=== PATIENT | female | born 1955 | race African-American/Black ===

== ENCOUNTER 2018-11-12 10:22 | Inpatient (IN) | payer BC, OTHER ==
[2018-11-12 10:56] VITALS: BMI 39.4
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
[2018-11-12] MEDS ORDERED: MAGNESIUM HYDROX 2400MG/30ML ORAL SUSPENSION 30 ML CUP PO PRN (12:15)
[2018-11-12] MEDS ORDERED: MAGNESIUM CITRATE 300 ML BOTTLE PO PRN (12:15)
[2018-11-12] MEDS ORDERED: DICYCLOMINE HCL 10 MG CAPSULE PO PRN (12:15)
[2018-11-12] MEDS ORDERED: BISMUTH SUBSALICYLATE 262 MG/15 ML BTL PO PRN (12:15)
[2018-11-12] MEDS ORDERED: METHOCARBAMOL 500 MG TABLET PO PRN (12:15)
[2018-11-12] MEDS ORDERED: MENTHOL/PHENOL 1 EACH UD MM PRN (12:15)
[2018-11-12] MEDS ORDERED: ACETAMINOPHEN 325 MG TABLET (FP) PO PRN ×2 (12:15)
[2018-11-12] MEDS ORDERED: chlordiazePOXIDE HCL 25 MG CAPSULE PO PRN (12:15)
[2018-11-12] MEDS ORDERED: MAG HYDROX/AL HYDROX/SIMETH 30 ML UNIT-DOSE CUP PO PRN (12:15)
[2018-11-12] MEDS: chlordiazePOXIDE HCL 25 MG CAPSULE PO SCH ×2 (16:57→22:08)
[2018-11-12] MEDS: ALBUTEROL SO4 0.083% IH SOL 2.5 MG/3 ML VIAL.NEB. NEB PRN (17:00)
[2018-11-12 17:06] LABS: HEMATOCRIT 43.6 % (32.4-45.2); HEMOGLOBIN 14.1 GM/dL (10.7-15.3); MCHC 32.3 g/dl (32.0-36.0); MEAN CELL VOLUME 86.8 fl (80-96); MEAN PLT VOLUME 9.3 fl (7.5-11.1); PLATELET COUNT 283 K/MM3 (134-434); RBC 5.02 M/mm3 (3.60-5.2); RDW 15.4 % (11.6-15.6); WHITE BLOOD COUNT 4.4 K/mm3 (4.0-10.0)
[2018-11-12 17:14] LABS: ALBUMIN 4.1 g/dl (3.4-5.0); BILIRUBIN,TOTAL 0.3 mg/dL (0.2-1); CALCIUM 9.6 mg/dL (8.5-10.1); POTASSIUM 4.2 mmol/L (3.5-5.1); TOT PROT 7.4 g/dl (6.4-8.2)
[2018-11-12] MEDS: THIAMINE HCL 100 MG TABLET (FP) PO SCH (22:07)
[2018-11-12] MEDS: BUDESONIDE/FORMETEROL FUMARATE 160/4.5 mcg INHALER IH SCH (22:08)
[2018-11-12] MEDS: MELATONIN 5 MG TABLETS PO PRN (22:09)
[2018-11-13] MEDS: chlordiazePOXIDE HCL 25 MG CAPSULE PO SCH ×4 (05:23→22:17)
[2018-11-13] MEDS: ALBUTEROL SO4 0.083% IH SOL 2.5 MG/3 ML VIAL.NEB. NEB PRN ×2 (06:41→15:45)
[2018-11-13] MEDS: PANTOPRAZOLE 40 MG TABLET (FP) PO SCH (10:16)
[2018-11-13] MEDS: PRENATAL VITAMINS W/ FOLIC ACID TABLET (FP) PO SCH (10:16)
[2018-11-13] MEDS: BUDESONIDE/FORMETEROL FUMARATE 160/4.5 mcg INHALER IH SCH ×2 (10:16→21:44)
[2018-11-13] MEDS: LOSARTAN POTASSIUM 50 MG TABLET (FP) PO SCH (10:16)
[2018-11-13] MEDS: HYDROCORTISONE 1% TOPICAL CREAM 30 GM TUBE TP SCH ×2 (15:47→21:43)
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
[2018-11-13] MEDS ORDERED: ONDANSETRON *ODT* 4 MG TABLET SL PRN (17:57)
--- NOTE | 2018-11-13 18:01 | PN ---
S CIWA - CIWA Score Nausea/Vomitin Muscle Tremors: 3 Anxiety: 1-Mildly Anxious Agitation: 1-Slight > Activity Paroxysmal Sweats: No Perspiration Orientation: 0-Oriented Tacttile Disturbances: 3-Moderate Itch/Numb/Burn Auditory Disturbances: 2-Mild Harshness/Frighten Visual Disturbances: 1-Very Mild Sensitivity Headache: 0-None Present CIWA-Ar Total Score: 14 BHS Progress Note (SOAP) Subjective: Poor Appetite, Tremors, Nausea, Anxious. Objective: PATIENT A & O X 3, OBSERVED AMBULATING ON UNIT UNASSISTED. IN NO ACUTE DISTRESS. 11/13/18 18:00 Vital Signs Temperature 97.8 F 11/13/18 16:04 Pulse Rate 81 11/13/18 16:04 Respiratory Rate 18 11/13/18 16:04 Blood Pressure 131/79 11/13/18 16:04 O2 Sat by Pulse Oximetry (%) Laboratory Tests 11/12/18 11/12/18 11/12/18 11:12 12:30 12:30 WBC 4.4 RBC 5.02 Hgb 14.1 Hct 43.6 MCV 86.8 MCH 28.0 MCHC 32.3 RDW 15.4 Plt Count 283 MPV 9.3 Sodium 139 Potassium 4.2 Chloride 106 Carbon Dioxide 27 Anion Gap 6 L BUN 14 Creatinine 1.0 Est GFR (CKD-EPI)AfAm 68.95 Est GFR (CKD-EPI)NonAf 59.49 Random Glucose 99 Calcium 9.6 Total Bilirubin 0.3 AST 17 ALT 23 Alkaline Phosphatase 75 Total Protein 7.4 Albumin 4.1 POC Urine HCG, Qual Negative RPR Titer HIV 1&2 Antibody Screen HIV P24 Antigen 11/12/18 11/13/18 12:30 09:20 WBC RBC Hgb Hct MCV MCH MCHC RDW Plt Count MPV Sodium Potassium Chloride Carbon Dioxide Anion Gap BUN Creatinine Est GFR (CKD-EPI)AfAm Est GFR (CKD-EPI)NonAf Random Glucose Calcium Total Bilirubin AST ALT Alkaline Phosphatase Total Protein Albumin POC Urine HCG, Qual RPR Titer Nonreactive HIV 1&2 Antibody Screen Negative HIV P24 Antigen Negative LABS NOTED. Assessment: 11/13/18 18:01 WITHDRAWAL SYMPTOMS. Plan: CONTINUE DETOX. PRN ZOFRAN SL FOR NAUSEA.
[2018-11-13] MEDS: IBUPROFEN 400 MG TABLET (FP) PO PRN (18:20)
[2018-11-13] MEDS: THIAMINE HCL 100 MG TABLET (FP) PO SCH (21:43)
[2018-11-13] MEDS: MELATONIN 5 MG TABLETS PO PRN (21:45)
[2018-11-14] MEDS: chlordiazePOXIDE HCL 25 MG CAPSULE PO SCH ×2 (05:57→10:09)
[2018-11-14] MEDS: IBUPROFEN 400 MG TABLET (FP) PO PRN (05:59)
[2018-11-14] MEDS ORDERED: HALOPERIDOL 2 MG TABLET PO ONE (10:02)
[2018-11-14] MEDS ORDERED: BENZTROPINE MESYLATE 0.5 MG TABLET (FP) PO ONE (10:03)
[2018-11-14] MEDS: PRENATAL VITAMINS W/ FOLIC ACID TABLET (FP) PO SCH (10:08)
[2018-11-14] MEDS: BUDESONIDE/FORMETEROL FUMARATE 160/4.5 mcg INHALER IH SCH ×2 (10:09→22:41)
[2018-11-14] MEDS: LOSARTAN POTASSIUM 50 MG TABLET (FP) PO SCH (10:09)
[2018-11-14] MEDS: PANTOPRAZOLE 40 MG TABLET (FP) PO SCH (10:09)
[2018-11-14] MEDS: HYDROCORTISONE 1% TOPICAL CREAM 30 GM TUBE TP SCH ×2 (10:10→22:41)
[2018-11-14] MEDS ORDERED: BENZTROPINE MESYLATE 1 MG TABLET (FP) PO ONE (10:45)
[2018-11-14] MEDS: ALBUTEROL SO4 0.083% IH SOL 2.5 MG/3 ML VIAL.NEB. NEB PRN (12:58)
--- NOTE | 2018-11-14 14:13 | PN ---
[facility] CIWA - CIWA Score Nausea/Vomitin-Mild Nausea/No Vomiting Muscle Tremors: 3 Anxiety: 3 Agitation: 2 Paroxysmal Sweats: 1-Minimal Palms Moist Orientation: 1-Uncertain about Date Tacttile Disturbances: 0-None Auditory Disturbances: 0-None Visual Disturbances: 0-None Headache: 0-None Present CIWA-Ar Total Score: 11 S Progress Note (SOAP) Subjective: long history of copd "second hand smoker" doing well with ventolin and nebulizer long history of schizophrenia last antipsychotropic medication was 07/2018 "I was drinking" report "the voice getting louder and louder" patient cover her both ears with the palm of her hands heldol 2 mg + cogentin 0.5 mg po x 1 psychiatric referral face to face with psychiatrist on board that the patient may needs psychotropic medication daily such as seroquel, zyprexa or ability Objective: 11/14/18 14:13 Vital Signs Temperature 97.0 F L 11/14/18 13:50 Pulse Rate 76 11/14/18 13:50 Respiratory Rate 18 11/14/18 13:50 Blood Pressure 126/76 11/14/18 13:50 O2 Sat by Pulse Oximetry (%) Laboratory Last Values WBC 4.4 K/mm3 (4.0-10.0) 11/12/18 12:30 RBC 5.02 M/mm3 (3.60-5.2) 11/12/18 12:30 Hgb 14.1 GM/dL (10.7-15.3) 11/12/18 12:30 Hct 43.6 % (32.4-45.2) 11/12/18 12:30 MCV 86.8 fl (80-96) 11/12/18 12:30 MCH 28.0 pg (25.7-33.7) 11/12/18 12:30 MCHC 32.3 g/dl (32.0-36.0) 11/12/18 12:30 RDW 15.4 % (11.6-15.6) 11/12/18 12:30 Plt Count 283 K/MM3 (134-434) 11/12/18 12:30 MPV 9.3 fl (7.5-11.1) 11/12/18 12:30 Sodium 139 mmol/L (136-145) 11/12/18 12:30 Potassium 4.2 mmol/L (3.5-5.1) 11/12/18 12:30 Chloride 106 mmol/L (98-107) 11/12/18 12:30 Carbon Dioxide 27 mmol/L (21-32) 11/12/18 12:30 Anion Gap 6 MMOL/L (8-16) L 11/12/18 12:30 BUN 14 mg/dL (7-18) 11/12/18 12:30 Creatinine 1.0 mg/dL (0.55-1.3) 11/12/18 12:30 Est GFR (CKD-EPI)AfAm 68.95 11/12/18 12:30 Est GFR (CKD-EPI)NonAf 59.49 11/12/18 12:30 Random Glucose 99 mg/dL (74-106) 11/12/18 12:30 Calcium 9.6 mg/dL (8.5-10.1) 11/12/18 12:30 Total Bilirubin 0.3 mg/dL (0.2-1) 11/12/18 12:30 AST 17 U/L (15-37) 11/12/18 12:30 ALT 23 U/L (13-61) 11/12/18 12:30 Alkaline Phosphatase 75 U/L (45-117) 11/12/18 12:30 Total Protein 7.4 g/dl (6.4-8.2) 11/12/18 12:30 Albumin 4.1 g/dl (3.4-5.0) 11/12/18 12:30 POC Urine HCG, Qual Negative 11/12/18 11:12 RPR Titer Nonreactive (NONREACTIVE) 11/12/18 12:30 HIV 1&2 Antibody Screen Negative 11/13/18 09:20 HIV P24 Antigen Negative 11/13/18 09:20 lab noted Assessment: 11/14/18 14:13 withdrawal sx Plan: continue detox
[2018-11-14] MEDS: chlordiazePOXIDE HCL 10 MG CAPSULE PO SCH ×2 (16:39→22:42)
[2018-11-14] MEDS ORDERED: chlordiazePOXIDE HCL 10 MG CAPSULE PO PRN (17:00)
--- NOTE | 2018-11-14 17:07 | PN ---
[facility] Progress Note Note: Psychiatry Attending's on-call note : Called by nurse. Patient is experiencing auditory hallucinations. Pejorative in content. Calling her names. Ms Mendoza has a history of suicidal behavior. In response to " voices ". Patient is at risk for unpredictable behavior. Initiate 1:1 Constant Observation for safety. Discussed with nurse. A P Supervisor spoke to patient via telephone. Haldol 1 mg po : one dose NOW. Symptoms confirmed. Consult pending. A P Supervisor is coming to evaluate patient.
[2018-11-14] MEDS ORDERED: HALOPERIDOL 1 MG TABLET (FP) PO ONE (17:23)
[2018-11-14] MEDS ORDERED: QUEtiapine FUMARATE 50 MG TABLET PO ONE (20:03)
--- NOTE | 2018-11-14 20:08 | PN ---
Psychiatric Progress Note Vital Signs: Vital Signs Period Temp Pulse Resp BP Sys/Alexandre Pulse Ox Last 24 Hr 96.9 F-97.1 F 68-78 18-20 124-140/74-89 98 Date of Session: 11/14/18 Chief Complaint:: " I am hearing voices. I am not myself ". HPI: Day 2 of detoxification for this 63 y/o AA female addressing alcohol + cocaine dependence co-morbid with schizoaffective disorder. No-adherent to medications for months. Patient is currently complaining of hearing derogatory voices commanding her to fight and hurt herself. ROS: Patient is ambulatory. Agitated. Current Medications: Active Medications Generic Name Dose Route Start Last Admin Trade Name Freq PRN Reason Stop Dose Admin Acetaminophen 650 mg 11/12/18 12:15 11/12/18 15:23 Tylenol - PO 650 mg Q6H PRN Administration PAIN LEVEL 4 - 6 Acetaminophen 650 mg 11/12/18 12:15 Tylenol - PO Q6H PRN FEVER Al Hydroxide/Mg Hydroxide 30 ml 11/12/18 12:15 11/13/18 18:20 Mylanta Oral Suspension - PO 30 ml Q6H PRN Administration DYSPEPSIA Albuterol Sulfate 1 amp 11/12/18 12:19 11/14/18 12:58 Ventolin 0.083% Nebulizer Soln - NEB 1 amp Q4H PRN Administration SHORT OF BREATH/WHEEZING Bismuth Subsalicylate 30 ml 11/12/18 12:15 Pepto-Bismol Liquid - PO Q1H PRN DIARRHEA Budesonide/Formoterol Fumarate 1 puff 11/12/18 22:00 11/14/18 10:09 Symbicort 160/4.5mcg - IH 1 puff BID QUINTON Administration Chlordiazepoxide HCl 10 mg 11/14/18 17:00 11/14/18 16:39 Librium - PO 11/15/18 11:01 10 mg P6V-MGV QUINTON Administration Chlordiazepoxide HCl 10 mg 11/15/18 17:00 Librium - PO 11/16/18 17:01 Q12H QUINTON Chlordiazepoxide HCl 10 mg 11/14/18 17:00 Librium - PO 11/15/18 17:00 Q4H PRN WITHDRAWAL(CONT SUBST) Dicyclomine HCl 10 mg 11/12/18 12:15 11/13/18 21:46 Bentyl - PO 11/18/18 12:16 10 mg Q6H PRN Administration Abdominal Cramping Eucalyptus/Menthol/Phenol/Sorbitol 1 each 11/12/18 12:15 Cepastat Lozenge - MM 11/18/18 12:15 Q4H PRN SORE THROAT Hydrocortisone 1 applic 11/13/18 12:15 11/14/18 10:10 Hytone 1% Cream - TP 1 applic BID QUINTON Administration Ibuprofen 400 mg 11/12/18 12:15 11/14/18 05:59 Motrin - PO 400 mg Q6H PRN Administration PAIN LEVEL 1 - 3 Losartan Potassium 50 mg 11/13/18 10:00 11/14/18 10:09 Cozaar - PO 50 mg DAILY QUINTON Administration Magnesium Citrate 300 ml 11/12/18 12:15 Citroma - PO Q48H PRN CONSTIPATION Magnesium Hydroxide 30 ml 11/12/18 12:15 Milk Of Magnesia - PO PRN PRN CONSTIPATION Melatonin 5 mg 11/12/18 12:15 11/13/18 21:45 Melatonin PO 5 mg HS PRN Administration INSOMNIA Methocarbamol 500 mg 11/12/18 12:15 11/12/18 22:10 Robaxin - PO 11/18/18 12:15 500 mg Q6H PRN Administration MUSCLE SPASMS Ondansetron HCl 4 mg 11/13/18 17:57 Zofran Odt - SL Q6H PRN NAUSEA AND/OR VOMITING Pantoprazole Sodium 40 mg 11/13/18 10:00 11/14/18 10:09 Protonix - PO 40 mg DAILY QUINTON Administration Multivit/Folic Acid/Iron 1 tab 11/13/18 10:00 11/14/18 10:08 Vitamins (Sjr) - PO 1 tab DAILY QUINTON Administration Thiamine HCl 100 mg 11/12/18 22:00 11/13/18 21:43 Vitamin B1 - PO 100 mg HS QUINTON Administration Medication(s) Change(s): Patient has agreed to take serooquel 50 mg orally (stat ). Current Side Effect: No Lab tests ordered: No Lab tests reviewed: Yes Provider note:: Chart reviewed. Records ([facility]) are revisited. Patient is already known to this institution. Ms Mendoza is acutely paranoid, aggressive, hypwertalkative and refractory to verbal redirections. " I want haldol or seroquel. I want to fight. The voices are loud and I am not myself ". Patient is escalating. Ms Mendoza is posing an immediate danger to self and others. This patient cannot be managed on a detoxification unit. Chinchilla Farmer contacted [facility]. Spoke to Dr Arellano, the psychiatrist on duty. Case discussed via telephone ([phone]). Patient will be transferred to the psychiatric emergency room at [facility]. Transfer approved by Dr Arellano. Ms Mendoza is transferred to [facility] via [facility] services. Total face to face time:: 45 Mental Status Exam - Mental Status Exam Alert and Oriented to: Time, Place, Person Cognitive Function: Good Patient Appearance: Unkempt, Disheveled Mood: Angry, Hostile, Irritable Affect: Mood Congruent Patient Behavior: Agitated Speech Pattern: Clear Voice Loudness: Moderately Loud Thought Process: Disorganized Thought Disorder: Present, Paranoid Ideation, Bizarre Hallucinations: Auditory (voices calling her, mocking her and pushing her to fight or hurt self) Suicidal Ideation: Current (vague, no specific plan) Homicidal Ideation: Denies Insight/Judgement: Poor, Impaired Sleep: Fair Appetite: Good Gait/Station: Other (moderately unsteady) Psychiatric Treatment Plan - Problem List (1) Suicide risk Current Visit: Yes (2) Acute psychosis Current Visit: Yes (3) Alcohol dependence with uncomplicated withdrawal Current Visit: Yes (4) Substance induced mood disorder Current Visit: Yes (5) Schizoaffective disorder Current Visit: Yes (6) Insomnia Current Visit: Yes (7) Non-compliance Current Visit: Yes
[2018-11-14] MEDS: THIAMINE HCL 100 MG TABLET (FP) PO SCH (22:42)
[2018-11-14 23:19] VITALS: BP 149/82; PULSE 74; TEMP 97.1
[2018-11-15] MEDS ORDERED: chlordiazePOXIDE HCL 10 MG CAPSULE PO SCH (17:00)
== END 2018-11-14 21:57 | DRG 897 ==
LOC: YASAS 10:22 → Y3N 12:47
PROVIDERS: ADMIT Surgery; ATTEND Surgery
PROC: HZ2ZZZZ Detoxification Services for Substance Abuse Treatment (ICD-10-PCS; principal; 2018-11-12)
DX: F10.230 Alcohol dependence with withdrawal, uncomplicated (principal); R44.0 Auditory hallucinations; R45.851 Suicidal ideations; F19.24 Other psychoactive substance dependence with psychoactive substance-induced mood disorder; F25.9 Schizoaffective disorder, unspecified; F29 Unspecified psychosis not due to a substance or known physiological condition; G47.00 Insomnia, unspecified; Z91.14 Patient's other noncompliance with medication regimen; I10 Essential (primary) hypertension; J45.909 Unspecified asthma, uncomplicated; R00.0 Tachycardia, unspecified; Z87.42 Personal history of other diseases of the female genital tract
CPT/HCPCS: 36415; 80053; 81025; 85027; 86593; 87389; 94640

== ENCOUNTER 2018-11-15 12:20 | Inpatient (IN) | payer BC ==
[2018-11-15 12:47] VITALS: BMI 35.7
--- NOTE | 2018-11-15 18:29 | HP ---
[facility] Rehab Assess/Revision - Admission History Admitted to Rehab from: Emergency Department Date of Admission to Rehab: 11/15/2018 - Vital signs Vital Signs: Vital Signs Period Temp Pulse Resp BP Sys/Alexandre Pulse Ox Last 24 Hr 97.8 F 101 22 135/82 - Findings Detox History & Physical reviewed: Yes Concur with findings: Yes Comments/Additional Findings: Patient was indetox for alcohol use disorder. Episodes of auditory hallucinations while in detox and was transported to [facility] on 11/14/18 for evaluation. ED report from [facility] reviewed and given Solumedrol 125 mg IV @ 12:05 am and Quetiapine 100 mg PO @ 2:25 am on 11/15/18. No medications indicated for discharge. 11/15/18 Discharge note states cleared to return to [facility]. Patient is alert. Knows month and year, off date by 2. States last ETOH use 11/12/18. Patient states was on Cogentin and Haldol but stopped using in July 2018. Hx COPD, HTN, Obesity, alcohol use disorder. Inpatient Rehab Admission - Rehab Decision to Admit Inpatient rehab admission?: Yes - Initial Determination Are CD services needed?: Yes Free of communicable disease: Yes Not in need of hospitalization: Yes - Rehab Admission Criteria Previous failed treatment: Yes Poor recovery environment: Yes Comorbidities: Yes Lacks judgement: No Patient is meeting Inpatient Rehab admission criteria:: Yes
[2018-11-15] MEDS ORDERED: MAG HYDROX/AL HYDROX/SIMETH 30 ML UNIT-DOSE CUP PO PRN (18:32)
[2018-11-15] MEDS ORDERED: guaiFENesin 200 MG/10 ML 10 ML UNIT-DOSE CUPS PO PRN (18:32)
[2018-11-15] MEDS ORDERED: MAGNESIUM CITRATE 300 ML BOTTLE PO PRN (18:32)
[2018-11-15] MEDS ORDERED: MENTHOL/PHENOL 1 EACH UD MM PRN (18:32)
[2018-11-15] MEDS ORDERED: MAGNESIUM HYDROX 2400MG/30ML ORAL SUSPENSION 30 ML CUP PO PRN (18:32)
[2018-11-15] MEDS ORDERED: P-EPHED 60MG/TRIPROLIDI 2.5MG TABLET PO PRN (18:32)
[2018-11-15] MEDS ORDERED: ACETAMINOPHEN 325 MG TABLET (FP) PO PRN (18:32)
[2018-11-15] MEDS ORDERED: IBUPROFEN 400 MG TABLET (FP) PO PRN (18:32)
[2018-11-15] MEDS ORDERED: PNEUMOC 13-VAL CONJ-DIP CRM/PF 0.5 ML DISP.SYRIN IM ONE (19:28)
[2018-11-15] MEDS: THIAMINE HCL 100 MG TABLET (FP) PO SCH (22:17)
[2018-11-15] MEDS: LOPERAMIDE HCL 2 MG CAPSULE PO PRN (22:17)
[2018-11-16] MEDS: LOPERAMIDE HCL 2 MG CAPSULE PO PRN ×2 (06:31→12:32)
[2018-11-16] MEDS: PANTOPRAZOLE 40 MG TABLET (FP) PO SCH (09:58)
[2018-11-16] MEDS: LOSARTAN POTASSIUM 50 MG TABLET (FP) PO SCH (09:58)
[2018-11-16] MEDS: PRENATAL VITAMINS W/ FOLIC ACID TABLET (FP) PO SCH (09:58)
[2018-11-16] MEDS: BUDESONIDE/FORMETEROL FUMARATE 160/4.5 mcg INHALER IH SCH ×2 (10:40→21:09)
[2018-11-16] MEDS ORDERED: PNEUMOCOCCAL 23 VACCINE 0.5 ML VIAL IM ONE (12:00)
[2018-11-16] MEDS ORDERED: PNEUMOC 13-VAL CONJ-DIP CRM/PF 0.5 ML DISP.SYRIN IM ONE ×2 (12:00)
--- NOTE | 2018-11-16 12:14 | EKG ---
Test Reason : Blood Pressure : / mmHG Vent. Rate : 083 BPM Atrial Rate : 083 BPM P-R Int : 160 ms QRS Dur : 080 ms QT Int : 382 ms P-R-T Axes : 056 024 003 degrees QTc Int : 448 ms NORMAL SINUS RHYTHM POSSIBLE LEFT ATRIAL ENLARGEMENT ABNORMAL ECG NO PREVIOUS ECGS AVAILABLE Confirmed by MD Luis Angel, Ricardo ([id number]) on 11/16/2018 12:14:13 PM Referred By: Confirmed By:Ricardo Plasencia MD
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
[2018-11-16] MEDS: BENZTROPINE MESYLATE 1 MG TABLET (FP) PO SCH ×2 (15:01→21:09)
[2018-11-16] MEDS: HALOPERIDOL 5 MG TABLET (FP) PO SCH ×2 (15:01→21:09)
[2018-11-16] MEDS ORDERED: PT OWN MED DRAWER 7, Y5N ONE (20:31)
[2018-11-16] MEDS: THIAMINE HCL 100 MG TABLET (FP) PO SCH (21:10)
[2018-11-16] MEDS: SUVOREXANT 10 MG TABLET PO PRN (21:10)
[2018-11-17] MEDS: PANTOPRAZOLE 40 MG TABLET (FP) PO SCH (10:12)
[2018-11-17] MEDS: LOSARTAN POTASSIUM 50 MG TABLET (FP) PO SCH (10:12)
[2018-11-17] MEDS: BUDESONIDE/FORMETEROL FUMARATE 160/4.5 mcg INHALER IH SCH ×2 (10:13→21:36)
[2018-11-17] MEDS: HALOPERIDOL 5 MG TABLET (FP) PO SCH ×2 (10:13→21:36)
[2018-11-17] MEDS: BENZTROPINE MESYLATE 1 MG TABLET (FP) PO SCH ×2 (10:13→21:35)
[2018-11-17] MEDS: PRENATAL VITAMINS W/ FOLIC ACID TABLET (FP) PO SCH (10:13)
[2018-11-17 14:32] LABS: EPI CELLS 6.3 /HPF (0-5/HPF); URINE APPEARANCE CLEAR; URINE BACTERIA 141.4 /hpf (NEGATIVE); URINE BILIRUBIN NEGATIVE (NEGATIVE); URINE CASTS 6 /lpf (0-8); URINE COLOR YELLOW; URINE GLUCOSE (UA) NEGATIVE (NEGATIVE); URINE KETONE NEGATIVE (NEGATIVE); URINE LEUK ESTERASE TRACE (NEGATIVE); URINE NITRITE NEGATIVE (NEGATIVE); URINE PROTEIN NEGATIVE (NEGATIVE); URINE RBC 2 /hpf (0-4); URINE UROBILINOGEN 0.2 mg/dL (0.2-1.0); URINE WBC 3 /hpf (0-5)
[2018-11-17] MEDS: THIAMINE HCL 100 MG TABLET (FP) PO SCH (21:37)
[2018-11-17] MEDS: SUVOREXANT 10 MG TABLET PO PRN (21:37)
[2018-11-17] MEDS: HYDROCORTISONE 1% TOPICAL OINT 30 GM TUBE TP PRN (21:38)
[2018-11-18] MEDS: BENZTROPINE MESYLATE 1 MG TABLET (FP) PO SCH ×2 (10:02→21:33)
[2018-11-18] MEDS: BUDESONIDE/FORMETEROL FUMARATE 160/4.5 mcg INHALER IH SCH ×2 (10:03→21:33)
[2018-11-18] MEDS: PANTOPRAZOLE 40 MG TABLET (FP) PO SCH (10:03)
[2018-11-18] MEDS: PRENATAL VITAMINS W/ FOLIC ACID TABLET (FP) PO SCH (10:03)
[2018-11-18] MEDS: LOSARTAN POTASSIUM 50 MG TABLET (FP) PO SCH (10:03)
[2018-11-18] MEDS: HALOPERIDOL 5 MG TABLET (FP) PO SCH ×2 (10:03→21:32)
[2018-11-18] MEDS: THIAMINE HCL 100 MG TABLET (FP) PO SCH (21:32)
[2018-11-18] MEDS: SUVOREXANT 10 MG TABLET PO PRN (21:33)
[2018-11-19] MEDS: HYDROCORTISONE 1% TOPICAL OINT 30 GM TUBE TP PRN (06:30)
[2018-11-19] MEDS ORDERED: PT OWN MED DRAWER 7, Y5N ONE ×2 (06:31→08:38)
[2018-11-19 06:39] VITALS: TEMP 97.9
[2018-11-19] MEDS: BUDESONIDE/FORMETEROL FUMARATE 160/4.5 mcg INHALER IH SCH (09:08)
[2018-11-19] MEDS: BENZTROPINE MESYLATE 1 MG TABLET (FP) PO SCH (09:08)
[2018-11-19] MEDS: HALOPERIDOL 5 MG TABLET (FP) PO SCH (09:09)
[2018-11-19] MEDS: PRENATAL VITAMINS W/ FOLIC ACID TABLET (FP) PO SCH (09:09)
[2018-11-19] MEDS: PANTOPRAZOLE 40 MG TABLET (FP) PO SCH (09:09)
[2018-11-19] MEDS: LOSARTAN POTASSIUM 50 MG TABLET (FP) PO SCH (09:12)
[2018-11-19 10:33] VITALS: BP 143/78; PULSE 82
--- NOTE | 2018-11-19 10:41 | PN ---
[facility] Progress Note Note: Notify by nursing that patient is signing out against medical advice. Scripts for 30 days supply of medications(Haldol % mg;bid, Cogentin 0.5 mg/bid) are electronically transmitted to [facility] at [address] [place] [address] [phone]
--- NOTE | 2018-11-19 10:51 | PN ---
[facility] Progress Note Note: Patient requested to sign out AMA stating she feels better and wants to go home. Patient encouraged to complete treatment and explained risk factors of relapse with signing out AMA but patient refused. Patient is medically stable, denies SI/HI and states she will attend AA to prevent relapse. Patient strongly recommended to follow up with PCP to continue medical management and sent 2 weeks of home HTN/Asthma medications to preferred pharmacy. Laboratory Tests 11/15/18 11/17/18 19:31 09:35 Urine Color Yellow Urine Appearance Clear Urine pH 5.0 Ur Specific [place] 1.021 Urine Protein Negative Urine Glucose (UA) Negative Urine Ketones Negative Urine Blood Negative Urine Nitrite Negative Urine Bilirubin Negative Urine Urobilinogen 0.2 Ur Leukocyte Esterase Trace Urine WBC (Auto) 3 Urine RBC (Auto) 2 Urine Casts (Auto) 6 U Epithel Cells (Auto) 6.3 Urine Bacteria (Auto) 141.4 POC Urine HCG, Qual Negative Vital Signs Temperature 97.9 F 11/19/18 06:00 Pulse Rate 82 11/19/18 09:10 Respiratory Rate 18 11/19/18 06:00 Blood Pressure 143/78 11/19/18 09:10 O2 Sat by Pulse Oximetry (%) Laboratory 11/15/18 11/17/18 19:31 09:35 Urine Color Yellow Urine Appearance Clear Urine pH 5.0 (5.0-8.0) Ur Specific [place] 1.021 (1.010-1.035) Urine Protein Negative (NEGATIVE) Urine Glucose (UA) Negative (NEGATIVE) Urine Ketones Negative (NEGATIVE) Urine Blood Negative (NEGATIVE) Urine Nitrite Negative (NEGATIVE) Urine Bilirubin Negative (NEGATIVE) Urine Urobilinogen 0.2 mg/dL mg/dL (0.2-1.0) Ur Leukocyte Esterase Trace (NEGATIVE) Urine WBC (Auto) 3 /hpf /hpf (0-5) Urine RBC (Auto) 2 /hpf /hpf (0-4) Urine Casts (Auto) 6 /lpf /lpf (0-8) U Epithel Cells (Auto) 6.3 /HPF /HPF (0-5/HPF) Urine Bacteria (Auto) 141.4 /hpf /hpf (NEGATIVE) POC Urine HCG, Qual Negative Home Medications Medication Instructions Recorded Budesonide/Formeterol Fumarate 1 inh PO BID #1 canister 06/15/16 [SYMBICORT 160/4.5mcg -] Quetiapine Fumarate [Seroquel -] 50 mg PO QID PRN 06/15/16 Omeprazole 40 mg PO DAILY 11/12/18 Albuterol Sulfate Inhaler - 2 inh IH Q4H PRN #1 inh 11/19/18 [Ventolin HFA Inhaler -] Benztropine Mesylate [Cogentin -] 0.5 mg PO DAILY #30 tablet 11/19/18 Budesonide/Formeterol Fumarate 1 puff IH BID #1 inhaler 11/19/18 [SYMBICORT 160/4.5mcg -] Haloperidol [Haldol -] 5 mg PO BID #60 tablet 11/19/18 Losartan Potassium [Cozaar -] 50 mg PO DAILY #14 tablet 11/19/18
== END 2018-11-19 11:31 | disposition left against medical advice (07) | DRG 894 ==
LOC: YASAS 12:20 → Y3E 19:09
PROVIDERS: ADMIT Surgery; ATTEND Surgery
PROC: HZ42ZZZ Group Counseling for Substance Abuse Treatment, Cognitive-Behavioral (ICD-10-PCS; principal; 2018-11-15)
DX: F10.20 Alcohol dependence, uncomplicated (principal); F14.20 Cocaine dependence, uncomplicated; F19.280 Other psychoactive substance dependence with psychoactive substance-induced anxiety disorder; F19.282 Other psychoactive substance dependence with psychoactive substance-induced sleep disorder; F25.9 Schizoaffective disorder, unspecified; F43.10 Post-traumatic stress disorder, unspecified; I10 Essential (primary) hypertension; J45.909 Unspecified asthma, uncomplicated; K21.9 Gastro-esophageal reflux disease without esophagitis; B18.2 Chronic viral hepatitis C; E78.00 Pure hypercholesterolemia, unspecified; G24.01 Drug induced subacute dyskinesia; Z87.42 Personal history of other diseases of the female genital tract; Z88.0 Allergy status to penicillin; Z91.012 Allergy to eggs
CPT/HCPCS: 81003; 81025; 90732; 93005; 93010; G0009

== ENCOUNTER 2021-10-07 13:54 | Inpatient (IN) | payer OTHER ==
[2021-10-07] MEDS ORDERED: MAGNESIUM HYDROX 2400MG/30ML ORAL SUSPENSION 30 ML CUP PO PRN (15:34)
[2021-10-07] MEDS ORDERED: DICYCLOMINE HCL 10 MG CAPSULE PO PRN (15:34)
[2021-10-07] MEDS ORDERED: BISMUTH SUBSALICYLATE 524 MG/30 ML PO PRN (15:34)
[2021-10-07] MEDS ORDERED: chlordiazePOXIDE HCL 25 MG CAPSULE PO PRN (15:34)
[2021-10-07] MEDS ORDERED: ACETAMINOPHEN 325 MG TABLET (FP) PO PRN (15:34)
[2021-10-07] MEDS ORDERED: MENTHOL/PHENOL 1 EACH UD MM PRN (15:34)
[2021-10-07] MEDS ORDERED: METHOCARBAMOL 500 MG TABLET PO PRN (15:34)
[2021-10-07] MEDS ORDERED: IBUPROFEN 400 MG TABLET (FP) PO PRN (15:34)
[2021-10-07] MEDS ORDERED: MAGNESIUM CITRATE 300 ML BOTTLE PO PRN (15:34)
[2021-10-07] MEDS ORDERED: LOPERAMIDE HCL 2 MG CAPSULE PO PRN (15:34)
[2021-10-07 16:18] VITALS: BMI 43.5
[2021-10-07] MEDS: hydrOXYzine PAMOATE 25 MG CAPSULE (FP) PO PRN (18:35)
[2021-10-07] MEDS: chlordiazePOXIDE HCL 25 MG CAPSULE PO SCH ×2 (18:36→22:12)
[2021-10-07] MEDS: PRENATAL VITAMINS W/ FOLIC ACID TABLET (FP) PO SCH (18:49)
[2021-10-07] MEDS: THIAMINE HCL 100 MG TABLET (FP) PO SCH (22:12)
[2021-10-07] MEDS: MELATONIN 5 MG TABLETS PO SCH (22:12)
[2021-10-07] MEDS: ACETAMINOPHEN 325 MG TABLET (FP) PO PRN (22:14)
[2021-10-08] MEDS: chlordiazePOXIDE HCL 25 MG CAPSULE PO SCH ×4 (06:03→22:22)
[2021-10-08] MEDS ORDERED: ALBUTEROL SO4 0.083% IH SOL 2.5 MG/3 ML VIAL.NEB. NEB PRN (09:22)
[2021-10-08] MEDS: PRENATAL VITAMINS W/ FOLIC ACID TABLET (FP) PO SCH (10:05)
[2021-10-08] MEDS: risperiDONE 0.5 MG TABLET PO SCH ×2 (10:05→22:22)
[2021-10-08] MEDS: ONDANSETRON *ODT* 4 MG TABLET SL PRN ×2 (10:06→17:40)
[2021-10-08 11:11] LABS: HEMATOCRIT 40.2 % (32.4-45.2); MCH 24.8 pg (25.7-33.7); MCHC 32.4 g/dl (32.0-36.0); MEAN CELL VOLUME 76.7 fl (80-96); MEAN PLT VOLUME 8.2 fl (7.5-11.1); PLATELET COUNT 350 10^3/uL (134-434); RBC 5.25 M/mm3 (3.60-5.2); RDW 17.8 % (11.6-15.6); WHITE BLOOD COUNT 4.7 K/mm3 (4.0-10.0)
[2021-10-08 11:16] LABS: CALCIUM 8.8 mg/dL (8.5-10.1)
[2021-10-08 11:17] LABS: ALBUMIN 3.3 g/dl (3.4-5.0); BLOOD UREA NITROGEN 11.3 mg/dL (7-18)
[2021-10-08 11:20] LABS: CREATININE 0.9 mg/dL (0.55-1.3)
[2021-10-08 11:21] LABS: TOT PROT 6.9 g/dl (6.4-8.2)
[2021-10-08 11:22] LABS: BILIRUBIN,TOTAL 0.3 mg/dL (0.2-1)
[2021-10-08] MEDS: ALBUTEROL SO4 HFA INHALER IH PRN ×2 (17:36→22:22)
[2021-10-08] MEDS: ACETAMINOPHEN 325 MG TABLET (FP) PO PRN (17:37)
[2021-10-08] MEDS: hydrOXYzine PAMOATE 25 MG CAPSULE (FP) PO PRN (17:38)
[2021-10-08] MEDS: THIAMINE HCL 100 MG TABLET (FP) PO SCH (22:22)
[2021-10-08] MEDS: MELATONIN 5 MG TABLETS PO SCH (22:23)
[2021-10-09] MEDS: chlordiazePOXIDE HCL 25 MG CAPSULE PO SCH ×4 (06:10→22:19)
[2021-10-09] MEDS: ALBUTEROL SO4 HFA INHALER IH PRN ×3 (06:11→22:38)
[2021-10-09] MEDS: hydrOXYzine PAMOATE 25 MG CAPSULE (FP) PO PRN ×3 (06:11→22:19)
[2021-10-09] MEDS: ACETAMINOPHEN 325 MG TABLET (FP) PO PRN ×2 (06:12→17:25)
[2021-10-09] MEDS: PRENATAL VITAMINS W/ FOLIC ACID TABLET (FP) PO SCH (10:22)
[2021-10-09] MEDS: risperiDONE 0.5 MG TABLET PO SCH ×2 (10:23→22:18)
[2021-10-09] MEDS: ONDANSETRON *ODT* 4 MG TABLET SL PRN (10:23)
[2021-10-09 15:08] LABS: SARS-CoV-2 NAA Not Detected (Not Detected)
[2021-10-09] MEDS: MELATONIN 5 MG TABLETS PO SCH (22:18)
[2021-10-09] MEDS: THIAMINE HCL 100 MG TABLET (FP) PO SCH (22:18)
[2021-10-10] MEDS ORDERED: chlordiazePOXIDE HCL 10 MG CAPSULE PO PRN
[2021-10-10] MEDS: chlordiazePOXIDE HCL 10 MG CAPSULE PO SCH ×4 (06:55→22:37)
[2021-10-10] MEDS: ACETAMINOPHEN 325 MG TABLET (FP) PO PRN ×2 (06:56→17:19)
[2021-10-10] MEDS: hydrOXYzine PAMOATE 25 MG CAPSULE (FP) PO PRN ×3 (06:57→17:20)
[2021-10-10] MEDS: risperiDONE 0.5 MG TABLET PO SCH ×2 (10:47→22:37)
[2021-10-10] MEDS: PRENATAL VITAMINS W/ FOLIC ACID TABLET (FP) PO SCH (10:48)
[2021-10-10] MEDS: BUDESONIDE/FORMETEROL FUMARATE 160/4.5 mcg INHALER IH SCH ×2 (10:48→22:36)
[2021-10-10] MEDS: MAG HYDROX/AL HYDROX/SIMETH 30 ML UNIT-DOSE CUP PO PRN ×2 (13:55→23:12)
[2021-10-10] MEDS: ALBUTEROL SO4 HFA INHALER IH PRN ×2 (17:18→22:36)
[2021-10-10] MEDS: THIAMINE HCL 100 MG TABLET (FP) PO SCH (22:37)
[2021-10-10] MEDS: MELATONIN 5 MG TABLETS PO SCH (22:37)
[2021-10-11] MEDS: chlordiazePOXIDE HCL 10 MG CAPSULE PO SCH ×2 (06:49→18:05)
[2021-10-11] MEDS: hydrOXYzine PAMOATE 25 MG CAPSULE (FP) PO PRN ×3 (06:50→18:06)
[2021-10-11] MEDS: PRENATAL VITAMINS W/ FOLIC ACID TABLET (FP) PO SCH (10:34)
[2021-10-11] MEDS: risperiDONE 0.5 MG TABLET PO SCH ×2 (10:34→22:28)
[2021-10-11] MEDS: BUDESONIDE/FORMETEROL FUMARATE 160/4.5 mcg INHALER IH SCH ×2 (10:36→22:29)
[2021-10-11] MEDS: PANTOPRAZOLE 20 MG TABLET PO SCH (14:03)
[2021-10-11] MEDS: ALBUTEROL SO4 HFA INHALER IH PRN ×2 (15:39→22:29)
[2021-10-11] MEDS: MAG HYDROX/AL HYDROX/SIMETH 30 ML UNIT-DOSE CUP PO PRN (18:39)
[2021-10-11] MEDS: MELATONIN 5 MG TABLETS PO SCH (22:28)
[2021-10-11] MEDS: THIAMINE HCL 100 MG TABLET (FP) PO SCH (22:28)
[2021-10-12] MEDS ORDERED: chlordiazePOXIDE HCL 10 MG CAPSULE PO ONE (05:00)
[2021-10-12 09:09] VITALS: BP 147/56; PULSE 95; TEMP 96.9
[2021-10-12] MEDS: BUDESONIDE/FORMETEROL FUMARATE 160/4.5 mcg INHALER IH SCH (10:44)
[2021-10-12] MEDS: PRENATAL VITAMINS W/ FOLIC ACID TABLET (FP) PO SCH (10:44)
[2021-10-12] MEDS: risperiDONE 0.5 MG TABLET PO SCH (10:44)
[2021-10-12] MEDS: PANTOPRAZOLE 20 MG TABLET PO SCH (10:44)
== END 2021-10-12 09:50 | disposition home or self-care (01) | DRG 897 ==
LOC: YASAS 13:54 → Y3N 17:28
PROVIDERS: ADMIT Allergy & Immunology; ATTEND Allergy & Immunology
PROC: HZ2ZZZZ Detoxification Services for Substance Abuse Treatment (ICD-10-PCS; principal; 2021-10-07)
DX: F10.230 Alcohol dependence with withdrawal, uncomplicated (principal); F14.20 Cocaine dependence, uncomplicated; F19.280 Other psychoactive substance dependence with psychoactive substance-induced anxiety disorder; I69.854 Hemiplegia and hemiparesis following other cerebrovascular disease affecting left non-dominant side; F19.24 Other psychoactive substance dependence with psychoactive substance-induced mood disorder; F25.9 Schizoaffective disorder, unspecified; F43.10 Post-traumatic stress disorder, unspecified; I10 Essential (primary) hypertension; E78.00 Pure hypercholesterolemia, unspecified; J44.9 Chronic obstructive pulmonary disease, unspecified; K21.9 Gastro-esophageal reflux disease without esophagitis; Z20.822 Contact with and (suspected) exposure to COVID-19; Z91.410 Personal history of adult physical and sexual abuse; Z88.0 Allergy status to penicillin; Z88.8 Allergy status to other drugs, medicaments and biological substances
CPT/HCPCS: 36415; 80053; 85027; 86780; C9803-CS; Q0162; U0003; U0005